=== PATIENT | male | born 1930 | race Caucasian/White ===

== ENCOUNTER 2017-01-17 09:58 | Outpatient (CLI) | payer MEDICARE ==
[2006-07-19 06:10] VITALS: BP 127/80
[~2017-01-17] VITALS: Ht 188 cm; Wt 79.0 kg
[~2017-01-17 09:58] MED LIST: ADVAIR 250/28 DISKU1 IH; ALBUTEROL SULFAT8 MG; ASPIRIN 32325 MG/TAB PO; ASPIRIN E.C. 8181 MG PO; CEPHALEXIN500 M1 PO; ENALAPRIL2.5 MG PO; LOPRESSOR 225 MG/TAB PO; LORTAB 5/500 501 TAB PO; METOPROLOL25 MG PO; MEVACOR 20M20 MG/TAB PO; MEVACOR20 MG PO; NIASPAN 500MG500 MG PO; PLAVIX 75MG TAB75 MG PO; PREDNISONE10 MG PO; RT ADVAIR 228 DISKUS IH; VALTREX1 GM PO; VASOTEC 2.2.5 MG/TAB PO; [UNRECOGNIZED DRUG - REMARK]
[2017-01-17 10:22] VITALS: BP 125/73; PULSE 53; TEMP 97.4
[2017-01-17] MEDS ORDERED: RT ADVAIR HFA 1112 G IH (12:36)
[2017-01-17] MEDS ORDERED: PLAVIX 75MG TAB75 MG PO (12:38)
[2017-01-17] MEDS ORDERED: TOPROL XL 25MG25 MG PO (12:39)
== END 2017-01-17 12:39 | disposition home or self-care (01) ==
LOC: EUO 09:58
DX: R35.1 Nocturia (principal)

== ENCOUNTER 2017-07-06 09:29 | Emergency (ER) | payer MEDICARE ==
[2006-07-19 06:10] VITALS: BP 127/80
[~2017-07-06] VITALS: Ht 188 cm; Wt 76.8 kg
[~2017-07-06 09:29] MED LIST changes: +RT ADVAIR HFA 1112 G IH; +TOPROL XL 25MG25 MG PO
[2017-07-06 09:31] VITALS: BP 145/63; PULSE 57; TEMP 97.5
== END 2017-07-06 11:09 | disposition home or self-care (01) ==
LOC: COL.ER 09:29
DX: S01.112A Laceration without foreign body of left eyelid and periocular area, initial encounter (principal); I25.10 Atherosclerotic heart disease of native coronary artery without angina pectoris; K21.9 Gastro-esophageal reflux disease without esophagitis; E78.5 Hyperlipidemia, unspecified; Z79.82 Long term (current) use of aspirin; Z23 Encounter for immunization; W01.198A Fall on same level from slipping, tripping and stumbling with subsequent striking against other object, initial encounter; Y92.009 Unspecified place in unspecified non-institutional (private) residence as the place of occurrence of the external cause

== ENCOUNTER → 2017-11-02 | Outpatient (CLI) | payer MEDICARE | LOC: COL.LAB 10:49 | DX: D72.829 Elevated white blood cell count, unspecified (principal) ==

== ENCOUNTER → 2017-11-04 | Outpatient (CLI) | payer MEDICARE | LOC: COL.VAS 13:31 | DX: I08.8 Other rheumatic multiple valve diseases (principal) ==

== ENCOUNTER → 2017-12-02 | Outpatient (CLI) | payer MEDICARE ==
[2006-07-19 06:10] VITALS: BP 127/80
[~2017-12-02] VITALS: Ht 188 cm; Wt 80.0 kg
[~2017-12-02] MED LIST changes: +MULTI VITAMINS1 TAB PO
[2017-12-02 10:09] VITALS: BP 114/72; PULSE 76
[2017-12-02 11:38] VITALS: BP 129/60; PULSE 61
== END ==
LOC: COL.RAD 09:28
DX: C83.88 Other non-follicular lymphoma, lymph nodes of multiple sites (principal); I25.10 Atherosclerotic heart disease of native coronary artery without angina pectoris; J45.909 Unspecified asthma, uncomplicated

== ENCOUNTER → 2017-12-26 | Outpatient (CLI) | payer MEDICARE | LOC: COL.VAS 08:46 | DX: I73.9 Peripheral vascular disease, unspecified (principal) ==

== ENCOUNTER → 2018-01-04 | Outpatient (CLI) | payer MEDICARE | LOC: COL.RAD 10:36 | DX: I70.213 Atherosclerosis of native arteries of extremities with intermittent claudication, bilateral legs (principal); I70.0 Atherosclerosis of aorta; I70.8 Atherosclerosis of other arteries; R59.0 Localized enlarged lymph nodes; Z85.72 Personal history of non-Hodgkin lymphomas | CPT/HCPCS: Q9967 ==

== ENCOUNTER → 2019-04-18 | Outpatient (CLI) | payer MEDICARE ==
[~2019-04-18] MED LIST changes: +FLEXERIL 1010 MG/TAB PO; +FLOMAX 0.40.4 MG/CAP PO; +PERCOCET 325 MG1 TA2 PO; +PRILOSEC 20MG20 MG PO; +TRENTAL 400MG400 MG PO; +TYLENOL 500MG500 MG PO
[2019-04-18 16:35] LABS: HEMATOCRIT 41.8 % (42.0-52.0); HEMOGLOBIN 13.5 g/dl (13.5-18.0); MEAN CELL VOLUME 88 fl (80.0-100.0); MEAN CORPUSCULAR HEMOGLOBIN 29 pg (27.0-31.0); MEAN CORPUSCULAR HGB CONC 32 g/dl (33.0-37.0); MEAN PLATELET VOLUME 8.6 fl (7.4-10.4); PLATELET COUNT 185 K/mm3 (130-400); RED BLOOD COUNT 4.74 M/mm3 (4.20-5.60); REDCELL DISTRIBUTION WIDTH-CV 14.9 % (11.5-14.5)
[2019-04-18 16:46] LABS: CALCIUM 9.4 mg/dL (8.4-10.2); CREATININE, serum 1.57 (0.66-1.25); MAGNESIUM 2.1 mg/dL (1.6-2.3); POTASSIUM 4.4 mmol/L (3.4-5.0)
== END ==
LOC: COL.LAB 16:03
PROVIDERS: Internal Medicine
DX: D72.829 Elevated white blood cell count, unspecified (principal)

== ENCOUNTER 2019-07-09 11:15 | Outpatient (RCR) | payer MEDICARE, OTHER | END 2019-07-17 | disposition home or self-care (01) | LOC: WSC | DX: S32.402A Unspecified fracture of left acetabulum, initial encounter for closed fracture (principal); S32.592A Other specified fracture of left pubis, initial encounter for closed fracture; W19.XXXA Unspecified fall, initial encounter ==

== ENCOUNTER → 2019-10-23 | Outpatient (CLI) | payer MEDICARE ==
[~2019-10-23] MED LIST changes: +IMBRUVICA280 MG PO; +RT ADVAIR HFA 1112 G
[2019-10-23 13:21] LABS: BILIRUBIN,TOTAL 0.6 mg/dL (0.0-1.0); CALCIUM 8.4 mg/dL (8.4-10.2); CREATININE, serum 1.42 (0.66-1.25); POTASSIUM 4.2 mmol/L (3.4-5.0); TOTAL PROTEIN 5.2 gm/dL (6.4-8.2)
[2019-10-23 13:23] LABS: HEMOGLOBIN 11.4 g/dl (13.5-18.0); MEAN CELL VOLUME 92 fl (80.0-100.0); MEAN CORPUSCULAR HEMOGLOBIN 28 pg (27.0-31.0); MEAN CORPUSCULAR HGB CONC 30 g/dl (33.0-37.0); MEAN PLATELET VOLUME 10.4 fl (7.4-10.4); PLATELET COUNT 119 K/mm3 (130-400); RED BLOOD COUNT 4.15 M/mm3 (4.20-5.60)
[2019-10-23 14:15] LABS: BAND 1 % (0-10); LYMPHOCYTE 85 % (20.0-51.0); NEUTROPHILS 13 % (42.0-75.2); PLATELET ESTIMATE NORMAL (NORMAL)
== END ==
LOC: ZCOL.LAB 11:23
PROVIDERS: Family Medicine
DX: I13.0 Hypertensive heart and chronic kidney disease with heart failure and stage 1 through stage 4 chronic kidney disease, or unspecified chronic kidney disease (principal); N18.3 Chronic kidney disease, stage 3 (moderate); I48.0 Paroxysmal atrial fibrillation

== ENCOUNTER 2019-11-26 14:46 | Outpatient (CLI) | payer MEDICARE ==
[2006-07-19 06:10] VITALS: BP 127/80
[~2019-11-26] VITALS: Ht 188 cm; Wt 86.4 kg
[2019-11-26 16:09] VITALS: BP 150/77; PULSE 66; TEMP 97.9
== END 2019-11-26 16:11 | disposition home or self-care (01) ==
LOC: EUO 14:46
DX: R33.9 Retention of urine, unspecified (principal)